=== PATIENT | male | born 1965 | race Caucasian/White ===

== ENCOUNTER 2018-09-03 09:23 | Emergency (ER) | payer BC ==
[2018-09-03 09:57] VITALS: BP 135/83
--- NOTE | 2018-09-03 10:23 | UC ---
Knee Pain HPI - HPI Summary HPI Summary: Patient is a 53-year-old male that injured his right knee yesterday when he got off the chair lift. He states his accidentally ran over the tips of his skis any twisted his leg and fell over. He was able to gingerly ski down the slope. He states that he has right lateral knee pain and it feels as though his knee will buckle. - History of Current Complaint Chief Complaint: UCLowerExtremity Stated Complaint: R KNEE COMPLAINT Time Seen by Provider: 09/03/18 10:10 Hx Obtained From: Patient Onset/Duration: Sudden Onset Severity Initially: Moderate Severity Currently: Mild Pain Intensity: 3 - worse with wt bearing Pain Scale Used: 0-10 Numeric Character: Sharp Aggravating Factor(s): Movement, Weight Bearing Alleviating Factor(s): Rest, Cold Associated Signs And Symptoms: Positive: Negative Able to Bear Weight: Yes - Allergies/Home Medications Allergies/Adverse Reactions: Allergies Allergy/AdvReac Type Severity Reaction Status Date / Time No Known Allergies Allergy Verified 09/03/16 12:46 PMH/Surg Hx/FS Hx/Imm Hx Previously Healthy: Yes - Surgical History Surgical History: Yes Surgery Procedure, Year, and Place: vasectomy - Family History Known Family History: Positive: Hypertension - Social History Alcohol Use: Weekly Substance Use Type: None Smoking Status (MU): Never Smoked Tobacco Review of Systems All Other Systems Reviewed And Are Negative: Yes Constitutional: Positive: Negative Skin: Positive: Negative Eyes: Positive: Negative ENT: Positive: Negative Respiratory: Positive: Negative Cardiovascular: Positive: Negative Gastrointestinal: Positive: Negative Genitourinary: Positive: Negative Motor: Positive: Negative Neurovascular: Positive: Negative Musculoskeletal: Positive: Arthralgia Neurological: Positive: Negative Psychological: Positive: Negative Is Patient Immunocompromised?: No Physical Exam Triage Information Reviewed: Yes Appearance: Well-Appearing, No Pain Distress, Well-Nourished Vital Signs: Initial Vital Signs Temp 97 F 09/03/18 09:49 Pulse 58 09/03/18 09:49 Resp 16 09/03/18 09:49 BP 135/83 09/03/18 09:49 Pulse Ox 100 09/03/18 09:49 Vital Signs Reviewed: Yes Eye Exam: Normal Eyes: Positive: Conjunctiva Clear ENT: Positive: Hearing grossly normal. Negative: Nasal congestion, Nasal drainage, Tonsillar swelling, Tonsillar exudate, Trismus Neck: Positive: Supple, Nontender, No Lymphadenopathy Respiratory: Positive: Lungs clear, Normal breath sounds, No respiratory distress Cardiovascular: Positive: RRR Musculoskeletal: Positive: ROM Limited @ - right knee, Other: - tender LCL and prox fibula/antalgic gait Neurological: Positive: Alert Psychological Exam: Normal Skin Exam: Normal Diagnostics - Radiology No standard instances Radiology Interpretation Completed By: Radiologist Summary of Radiographic Findings: no fx, no effusion Knee Pain Course/Dx - Differential Dx/Diagnosis Provider Diagnosis: Sprain of lateral collateral ligament of right knee Discharge - Sign-Out/Discharge Documenting (check all that apply): Patient Departure All imaging exams completed and their final reports reviewed: Yes - Discharge Plan Condition: Stable Disposition: HOME Patient Education Materials: Knee Sprain (ED), Knee Immobilizer (ED) Forms: *Work Release Referrals: Rayshawn Estevez MD [Primary Care Provider] - [facility] [Outside] - 1 Week (I suggest you see Dr. Johnston or one of his partners in 5-10 days) Additional Instructions: ice advil or aleve for pain - Billing Disposition and Condition Condition: STABLE Disposition: Home
== END 2018-09-03 10:56 | disposition home or self-care (01) ==
LOC: UCEAST 09:23
DX: S83.421A Sprain of lateral collateral ligament of right knee, initial encounter (principal); X50.1XXA Overexertion from prolonged static or awkward postures, initial encounter; W19.XXXA Unspecified fall, initial encounter; Y92.9 Unspecified place or not applicable
CPT/HCPCS: 99212; G0463